=== PATIENT | male | born 1975 | race Caucasian/White ===

== ENCOUNTER 2017-08-14 09:56 | Inpatient (IN) | payer OTHER ==
[2017-08-14] MEDS ORDERED: Thiamine 100 mg/ml Inj IV ONE (10:35)
[2017-08-14 11:00] LABS: BASO % 1.4 % (0.0-2.0); EOS # 0.1 K/uL (0.0-0.7); EOS % 3.9 % (0.0-4.0); HEMOGLOBIN 13.7 g/dL (12.0-18.0); LYMPH # 0.6 K/uL (1.0-4.3); LYMPH % 28.2 % (20.0-40.0); MEAN CELL VOLUME 92.7 fL (80.0-94.0); MEAN CORPUSCULAR HEMOGLOBIN 32.4 pg (27.0-31.0); MEAN PLATELET VOLUME 6.9 fL (7.2-11.7); MONO # 0.4 K/uL (0.0-0.8); MONO % 16.5 % (0.0-10.0); NEUT # 1.1 K/uL (1.8-7.0); NRBC % 0.1 % (0.0-2.0); RBC 4.23 Mil/uL (4.40-5.90); RED CELL DISTRIBUTION WIDTH 12.8 % (11.5-14.5); WHITE BLOOD COUNT 2.1 K/uL (4.8-10.8)
--- NOTE | 2017-08-14 11:02 | C.PDOC ---
History Of Present Illness 42-year-old male, presents to the emergency department requesting detox from alcohol. Patient state he drinks Vodka everyday, reports his last drink was last night. Patient denies HI/SI. Time Seen by Provider: 08/14/17 10:27 Chief Complaint (Nursing): Abdominal Pain History Per: Patient History/Exam Limitations: no limitations Past Medical History Reviewed: Historical Data, Nursing Documentation, Vital Signs Vital Signs: Last Vital Signs Temp 98.1 F 08/14/17 13:54 Pulse 70 08/14/17 13:54 Resp 18 08/14/17 13:54 BP 122/75 08/14/17 13:54 Pulse Ox 100 08/14/17 14:10 Family History: States: No Known Family Hx - Social History Hx Alcohol Use: Yes Hx Substance Use: No - Immunization History Hx Tetanus Toxoid Vaccination: No Hx Influenza Vaccination: No Hx Pneumococcal Vaccination: No Review Of Systems Constitutional: Negative for: Fever Cardiovascular: Negative for: Chest Pain, Palpitations Respiratory: Negative for: Shortness of Breath Gastrointestinal: Negative for: Abdominal Pain Genitourinary: Negative for: Incontinence Musculoskeletal: Negative for: Neck Pain Psych: Negative for: Psychosis, Suicidal ideation Physical Exam - Physical Exam Appears: Non-toxic, No Acute Distress Skin: Normal Color, Warm, Dry, No Rash, No Jaundice Head: Normacephalic Eye(s): bilateral: PERRL Nose: Normal Oral Mucosa: Moist Lips: Normal Appearing Neck: Normal ROM Chest: Symmetrical Cardiovascular: Rhythm Regular, No Murmur Respiratory: Normal Breath Sounds, No Accessory Muscle Use Extremity: Normal ROM, No Deformity, No Swelling Neurological/Psych: Oriented x3, Normal Speech ED Course And Treatment - Laboratory Results Result Diagrams: 08/14/17 10:50 08/14/17 10:50 O2 Sat by Pulse Oximetry: 100 (RA) Pulse Ox Interpretation: Normal Medical Decision Making Medical Decision Making: Impression 42y/o M comes in requesting detox from alcohol Plan: * Bloodwork/UDS * Librium, Thiamine, Zofran * Reassess and Disposition Patient evaluated by crisis, will be admitted by Dr Falk for detox. Disposition Discussed With : Janusz Falk Doctor Will See Patient In The: Hospital Counseled Patient/Family Regarding: Studies Performed, Diagnosis - Disposition Disposition: HOSPITALIZED Disposition Time: 14:10 Condition: FAIR Forms: [facility] (Martiniquais) - Clinical Impression Clinical Impression: Alcohol abuse - Scribe Statement The provider has reviewed the documentation as recorded by the Scribe (Ramandeep Jones) All medical record entries made by the Scribe were at my direction and personally dictated by me. I have reviewed the chart and agree that the record accurately reflects my personal performance of the history, physical exam, medical decision making, and the department course for this patient. I have also personally directed, reviewed, and agree with the discharge instructions and disposition.
[2017-08-14 11:12] LABS: SQUAMOUS EPITHIAL < 1 /hpf (0-5); URINE BILIRUBIN NEGATIVE (NEGATIVE); URINE BLOOD NEGATIVE (NEGATIVE); URINE CLARITY Clear (Clear); URINE COLOR Yellow (YELLOW); URINE GLUCOSE (UA) NORMAL (Normal); URINE LEUKOCYTE ESTERASE NEG Leu/uL (Negative); URINE PROTEIN NEGATIVE (NEGATIVE); URINE UROBILINOGEN NORMAL mg/dL (0.2-1.0)
[2017-08-14 11:14] LABS: ALB/GLOB RATIO 0.9 (1.0-2.1); ALT/SGPT 19 U/L (21-72); AST/SGOT 35 U/L (17-59); BLOOD UREA NITROGEN 7 mg/dL (9-20); CALCIUM 8.5 mg/dl (8.6-10.4); GFR AFRICAN-AMERICAN > 60; GFR NON-AFRICAN AMERICAN > 60; LIPASE 115 U/L (23-300)
[2017-08-14 11:25] LABS: BARBITURATES, UR NEGATIVE (NEGATIVE); BENZODIAZEPINES, UR NEGATIVE (NEGATIVE); OPIATES, UR NEGATIVE (NEGATIVE); PHENCYCLIDINE, UR NEGATIVE (NEGATIVE)
--- NOTE | 2017-08-14 15:46 | PCM.BM ---
<Luz Elena Lord - Last Filed: 08/14/17 15:44> Treatment Plan Problems - Problems identified on initial assessmt potiential for autonomic instability related to alcohol withdrawal Date Initiated: 08/14/17 Time Initiated: 15:45 Assessment reference: NA Status: Active Treatment assets and liabiliti Patient Assests: ADL independent, cognitively intact Patient Liabilities: substance abuse, medical problems - Milieu Protocol Maintain good personal hygiene: daily Encourage regular showers, daily Remind patient to perform daily oral care, daily Assist patient to perform ADL's Maintain personal safety: every shift Educate patient to report safety concerns to staff, every shift Monitor environment for contraband/sharps Medication safety: Monitor for expected outcome, potential side effects: every shift, Assess barriers to learning: every shift, Assess readiness for medication education: every shift <Janusz Falk - Last Filed: 08/20/17 17:45> - Diagnosis (1) Alcohol use disorder, severe, dependence Status: Acute Interventions: 08/20/17 17:45 * Assess 7x/week regarding severity of withdrawal * Educate regarding risks, benefits, side effects and alternatives of medications * Use Motivational Interviewing for abstinence * Use CBT for relapse prevention * Medication management for withdrawal symptoms * Encourage medication assisted treatment
[2017-08-14] MEDS: Multiple Vitamins Tab PO SCH (16:46)
[2017-08-15] MEDS: Multiple Vitamins Tab PO SCH (09:39)
--- NOTE | 2017-08-15 23:29 | PCM.PSYCH ---
Initial Psychiatric Evaluation - Initial Psychiatric Evaluation Type of Admission: Voluntary Legal Status: Capacity Chief Complaint (in patient's own words): I need treatment for my alcohol withdrawal. History of Present Illness and Precipitating Events: Patient is a 42 years old, , unemployed, -[place] male with no psychiatric history was admitted due to withdrawing from alcohol Patient reported he started drinking alcohol at 19 years of age. Increased gradually and currently he was drinking 500 mL of vodka daily. Last use was 2 days ago. No previous detox or rehabs. Denied use of any other drugs including cocaine, cannabis and heroin. Denied smoking cigarettes. Patient has history of HIV and is on medications. Patient was born in [facility], has college education from [facility]. Moved to [facility] 1 year ago alone for some family issues lives with friend, not working. His sister helps him some time. His height is 6 feet 8 inches and weight is 160 pounds. Current Medications: Active Medications Generic Name Dose Route Start Last Admin Trade Name Freq PRN Reason Stop Dose Admin Chlordiazepoxide 25 mg 08/14/17 18:00 08/15/17 17:25 Librium PO 08/18/17 17:59 25 mg TID PRASANTH Administration Taper Dolutegravir Sodium 50 mg 08/14/17 16:15 08/15/17 09:40 Tivicay PO 50 mg DAILY PRASANTH Administration Protocol Folic Acid 1 mg 08/14/17 16:15 08/15/17 09:39 Folic Acid PO 1 mg DAILY PRASANTH Administration Gabapentin 300 mg 08/14/17 18:00 08/15/17 17:25 Neurontin PO 300 mg BID PRASANTH Administration Ibuprofen 400 mg 08/14/17 16:08 Motrin Tab PO Q6 PRN Pain, moderate (4-7) Multivitamins 1 tab 08/14/17 16:15 08/15/17 09:39 Hexavitamin PO 1 tab DAILY PRASANTH Administration Thiamine HCl 100 mg 08/14/17 16:15 08/15/17 09:39 Vitamin B1 Tab PO 100 mg DAILY PRASANTH Administration Trazodone HCl 50 mg 08/14/17 22:00 08/15/17 00:05 Desyrel PO 50 mg HS PRN Administration Insomnia Past Psychiatric History - Past Psychiatric History Previous Treatment History: None History of Abuse: None reported History of ETOH/Drug Use: See HPI History of Family Illness: Reported history of alcohol was about in brother and father Pertinent Medical Hx (Current Medical&Sleep Prob, Allergies): Allergies Allergy/AdvReac Type Severity Reaction Status Date / Time No Known Allergies Allergy Verified 08/14/17 10:05 No Known Home Med 08/14/17 HIV Review of Systems - Psychiatric Psychiatric: Anxiety, Other Mental Status Examination - Personal Presentation Personal Presentation: Looks stated age - Affect Affect: Other (Appropriate) - Motor Activity Motor Activity: Calm - Reliability in Providing Information Reliability in Providing Information: Fair - Speech Speech: Organized - Mood Mood: Anxious - Formal Thought Process Formal Thought Process: No Impairment - Hallucinations/Delusions Hallucinations: Other (None reported) Delusions: Other - Obsessions/Compulsions Obsessions: None Compulsions: None - Cognitive Functions Orientation: Person, Place, Situation, Time Sensorium: Alert Attention/Concentration: Attentive Abstract Thinking: [place] Estimate of Intelligence: Average Judgement: Intact, as evidence by: Insight regarding need for hospitalization Memory: Recent intact, as evidence by: Ability to recall events of the day, Remote intact, as evidenced by: Ability to recall historical events - Risk Risk: Withdrawal, Diminished functioning - Strength & Assets Inventory Strength & Assets Inventory: Cooperative - Limitations Limitations: Other DSM 5 DX - DSM 5 DSM 5 Diagnosis: Alcohol use disorder severe - Recommended/Plan of Treatment Treatment Recommendations and Plan of Treatment: Patient education Supportive therapy CBT for relapse prevention MS for abstinence Continue treatment as before [facility] worker is trying to find a place for patient for follow-up care as patient has no visa status. Projected ELOS: 4-5 days - Smoking Cessation Smoking Cessation Initiated: No Reason for not providing: Patient doesn't smoke cigarettes
[2017-08-16] MEDS: Multiple Vitamins Tab PO SCH (10:14)
--- NOTE | 2017-08-16 16:48 | PCM.PYCHPN ---
Psychiatric Progress Note - Psychiatric Progress Note Patient seen today, length of contact: 15 Minutes Patient Chief Complaint: I'm feeling better Problems Identified/Issues Discussed: Patient seen, chart reviewed, case discussed with the staff. Issues related to illness and treatment were discussed with the patient and staff. Reported compliant with treatment with no adverse affects. Feeling better. Mood reported as okay. Affect appropriate. Aftercare discussed with the patient. Social workers are trying to find a place for patient for follow-up care after discharge from the hospital. X At time of evaluation, patient was awake alert oriented 3, no delusions, no auditory or visual hallucinations, no suicidal ideations or homicidal ideations. Medical Problems: HIV Diagnostic Results: Reviewed DSM 5 Symptoms Update: Improving with treatment Medication Change: No Medical Record Reviewed: Yes Mental Status Examination - Cognitive Function Orientation: Person, Place, Situation, Time Memory: Intact Attention: WNL Concentration: WNL Association: WN Fund of Knowledge: [facility] Decription of patient's judgement and insights: Fair - Mood Mood: Anxious (Much less than before ) - Affect Affect: Other (Appropriate) - Speech Speech: Appropriate - Formal Thought Process Formal Thought Process: No Impairment Psychotic Thoughts and Behaviors: None - Suicidal Ideation Suicidal Ideation: No - Homicidal Ideation Homicidal Ideation: No Goal/Treatment Plan - Goal/Treatment Plan Need for Continued Stay: Remain at risks for inpatient hospitalization, Discharge may exacerbated symptoms, Severe functional impairment Progress Toward Problem(s) and Goals/Treatment Plan: Patient education Supportive therapy CBT for relapse prevention [place] for abstinence Continue treatment as before 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 Estimated Date of D/C: 08/18/17 - Smoking Cessation Smoking Cessation Initiated: No Reason for not providing: Patient doesn't smoke cigarettes
[2017-08-16] MEDS: Emtricitabine-Tenofovir 200 mg-300 mg Tab PO SCH (17:26)
[2017-08-17] MEDS: Multiple Vitamins Tab PO SCH (09:24)
[2017-08-17] MEDS: Emtricitabine-Tenofovir 200 mg-300 mg Tab PO SCH (09:25)
[2017-08-17 11:45] VITALS: RESP 18
[2017-08-17 20:49] VITALS: TEMP 98.1
--- NOTE | 2017-08-17 23:24 | PCM.PYCHPN ---
Psychiatric Progress Note - Psychiatric Progress Note Patient seen today, length of contact: 15 Minutes Patient Chief Complaint: I'm feeling better Problems Identified/Issues Discussed: Patient seen, chart reviewed, case discussed with the staff. Issues related to illness and treatment were discussed with the patient and staff. Reported compliant with treatment with no adverse affects. Feeling better. Mood reported as okay. Affect appropriate. Aftercare discussed with the patient. Social workers are trying to find a place for patient for follow-up care after discharge from the hospital. X At time of evaluation, patient was awake alert oriented 3, no delusions, no auditory or visual hallucinations, no suicidal ideations or homicidal ideations. Medical Problems: HIV Diagnostic Results: Reviewed Medication Change: No Medical Record Reviewed: Yes Mental Status Examination - Cognitive Function Orientation: Person, Place, Situation, Time Memory: Intact Attention: WNL Concentration: WNL Association: WNL Fund of Knowledge: WN Decription of patient's judgement and insights: Fair - Mood Mood: Anxious (Much less than before ) - Affect Affect: Other (Appropriate) - Speech Speech: Appropriate - Formal Thought Process Formal Thought Process: No Impairment Psychotic Thoughts and Behaviors: None - Suicidal Ideation Suicidal Ideation: No - Homicidal Ideation Homicidal Ideation: No Goal/Treatment Plan - Goal/Treatment Plan Need for Continued Stay: Remain at risks for inpatient hospitalization, Discharge may exacerbated symptoms, Severe functional impairment Progress Toward Problem(s) and Goals/Treatment Plan: Patient education Supportive therapy CBT for relapse prevention [place] for abstinence Continue treatment as before 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 Estimated Date of D/C: 08/18/17
[2017-08-18 08:53] VITALS: BP 105/67; PULSE 92; O2SAT 98
[2017-08-18] MEDS: Multiple Vitamins Tab PO SCH (09:37)
[2017-08-18] MEDS: Emtricitabine-Tenofovir 200 mg-300 mg Tab PO SCH (09:38)
--- NOTE | 2017-08-20 18:19 | PCM.PYCHDC ---
Mental Status Examination - Mental Status Examination Orientation: Person, Place, Situation, Time Memory: Intact Mood: Neutral Affect: Other (Appropriate) Speech: Appropriate Attention: WNL Concentration: WNL Association: WNL Fund of Knowledge: WNL Formal Thought Process: No Impairment Description of patient's judgement and insight: Fair Psychotic Thoughts and Behaviors: None Suicidal Ideation: No Current Homicidal Ideation?: No Discharge Summary - Discharge Note Reason for Hospitalization: Alcohol use disorder severe Laboratory Data: Reviewed Consultations:: List each consultation separately and include: 1. Reason for request. 2. Findings. 3. Follow-up Summary of Hospital Course include:: 1. Description of specific treatment plan utilized for patients during their course of treatmen. 2. Summarize the time- course for resolution of acute symptoms and/or regressed behaviors. 3. Describe issues identified and worked on during hospitalization. 4. Describe medication utilized. 5. Describe medical problems identified and treated. 6. Reassessment of suicide risk Summary of Hospital Course: Patient is a 42 years old, , unemployed, -[place] male with no psychiatric history was admitted due to withdrawing from alcohol Patient reported he started drinking alcohol at 19 years of age. Increased gradually and currently he was drinking 500 mL of vodka daily. Last use was 2 days ago. No previous detox or rehabs. Denied use of any other drugs including cocaine, cannabis and heroin. Denied smoking cigarettes. Patient has history of HIV and is on medications. Patient was born in [facility], has college education from [facility]. Moved to [facility] 1 year ago alone for some family issues lives with friend, not working. His sister helps him some time. His height is 6 feet 8 inches and weight is 160 pounds. During his stay in the hospital patient was treated with Librium detox protocol and other as needed medications. Patient attended groups and other activities on the unit. With above treatment patient started feeling better and was ready for discharge. At the time of evaluation and discharge, patient was awake alert oriented 3, no delusions nor likely due to visual hallucinations, no suicidal ideations or homicidal ideations. Patient was discharged in stable condition. Patient will go to [facility] for follow-up care after discharge from the hospital. - Diagnosis (1) Alcohol use disorder, severe, dependence Status: Acute - Final Diagnosis (DSM 5) Condition upon Discharge: FAIR Disposition: HOME/ ROUTINE Follow-up Treatment Plan: [facility]. Prescriptions/Medication Reconciliation: Gabapentin [Neurontin] 300 mg PO BID #60 cap traZODone [Desyrel] 50 mg PO HS PRN #30 tab PRN Reason: Insomnia - Smoking Cessation Smoking Cessation Medication prescribed: No - Antipsychotic Medications Pt discharged on 2 or more routine antipsychotic medications: No
== END 2017-08-18 10:30 | disposition home or self-care (01) | DRG 715 ==
LOC: C.ER 09:56 → C.7D 14:08
PROC: HZ2ZZZZ Detoxification Services for Substance Abuse Treatment (ICD-10-PCS; principal; 2017-08-14)
PROC: HZ52ZZZ Individual Psychotherapy for Substance Abuse Treatment, Cognitive-Behavioral (ICD-10-PCS; 2017-08-14)
PROC: HZ59ZZZ Individual Psychotherapy for Substance Abuse Treatment, Supportive (ICD-10-PCS; 2017-08-14)
PROC: HZ42ZZZ Group Counseling for Substance Abuse Treatment, Cognitive-Behavioral (ICD-10-PCS; 2017-08-14)
DX: F10.230 Alcohol dependence with withdrawal, uncomplicated (principal); Z21 Asymptomatic human immunodeficiency virus [HIV] infection status; Y90.0 Blood alcohol level of less than 20 mg/100 ml